=== PATIENT | female | born 1980 | race Two or more races ===

== ENCOUNTER 2021-04-05 09:14 | Emergency (ER) | payer BC, SELFPAY ==
--- NOTE | ~2021-04-05 | US_ITS ---
EXAMINATION: US VENOUS ULTRASOUND WITH DOPPLER LOWER EXTREMITY, RIGHT CLINICAL INFORMATION: Pain, swelling and erythema right leg. COMPARISON: None TECHNIQUE: Ultrasound of the deep veins is performed from the hip to the calf with compression sonography and color and pulse Doppler assessment. Spectral analysis with color-flow imaging is performed. FINDINGS: There is normal venous compression and respiratory variation and augmented flow. The visualized common femoral vein, superficial femoral vein, profunda femoral vein, popliteal vein, and the trifurcation region shows no evidence of deep venous thrombosis. There is no significant popliteal fossa cyst. Incidental finding of a small lymph node below the right groin measuring 1.99 x 4.26 x 1.16 cm. If the patient's symptoms persist, followup ultrasound in 5 to 7 days might be of value to exclude proximal propagation from a non-visualized calf vein. US/US venous duplex LE RT IMPRESSION: No DVT demonstrated in the right lower extremity.
[2021-04-05 09:23] VITALS: BP 152/78; PULSE 109; RESP 24; TEMP 36.8; O2SAT 96; BMI 63.6
--- NOTE | 2021-04-05 10:29 | ED.GENADULT ---
HPI - General Adult General Chief complaint: Extremity Problem Stated complaint: rt leg pain, swelling, ?cellulitis, hives Time Seen by Provider: 04/05/21 09:36 Source: patient Mode of arrival: ambulatory Limitations: no limitations History of Present Illness HPI narrative: 40-year-old female who presents emergency department for evaluation of cellulitis of the right lower extremity. The patient lives in [place] and return to this area 5 days prior to help her mother with her father's arrangements. The states that on 03/23/2021 she noticed redness of her right lower extremity and went to an urgent care clinic in [place]. She she was diagnosed her with cellulitis of her right lower extremity and treated with and injection of antibiotics then referred her to an emergency department. She states that at the emergency department , she had blood work and an ultrasound of her right lower extremity. She was then started on cephalexin 500 mg 4 times a day for 2 weeks, Bactrim 1 pill twice a day for 2 weeks and clindamycin 450 mg 3 times a day for 2 weeks. She states that the redness and the pain got significantly better however it did not resolve completely. She also states that over the last 3-4 days she has developed a pruritic rash over her entire body which she is treated with Benadryl. Currently, she states that she is having [id number] pain in her right foot and right lower extremity to just below the knee. She states that these areas are swollen compared to her left lower extremity. She states that the redness has improved significantly but has not gone away completely. She denied fever, chills, nausea, vomiting, weakness, fatigue. Related Data Previous Rx's Medication Instructions Recorded cefuroxime axetil 500 mg tablet 500 mg PO Q12H 10 Days #20 tab 04/05/21 doxycycline hyclate 100 mg tablet 100 mg PO Q12H 10 Days #20 tab 04/05/21 Allergies Allergy/AdvReac Type Severity Reaction Status Date / Time No Known Allergies Allergy Verified 04/05/21 10:30 Review of Systems Review of Systems: Yes all other systems are reviewed and are negative [facility] Past Medical History [facility] Narrative: Past medical history: Prediabetes, asthma. Past Surgical history: Tonsillectomy at age 23, uterine fibroid like tumor removed. Social history: Patient denies tobacco use. She states she drinks occasionally on the weekends. She denies drug use. She lives in [place] but is return to this area for her father's which is on 04/09/2022. Social History Social History Advance Directives: No Advance Directives Information Provided: No Patient : No Physical Exam Vital Signs: Vital Signs: Last Vital Signs Temp 98.3 F 04/05/21 09:23 Pulse 109 H 04/05/21 09:23 Resp 24 H 04/05/21 09:23 BP 152/78 H 04/05/21 09:23 Pulse Ox 96 04/05/21 09:23 Body Mass Index 63.6 Const: Other: Very pleasant cooperative female patient, does not appear to be in distress, answers all questions appropriately HENMT: Head: Yes normal to inspection, Yes normocephalic and Yes atraumatic Ears: external ears normal General nose exam: Normal external nose present Face and sinus: Yes normal facial exam Mouth: Normal oral and palatal mucosa present Throat: Yes posterior oropharynx normal Eyes: General: appearance normal, both eyes and all related structures Pupils: Equal, round and reactive pupils present Neck: Neck: Yes normal visual inspection, Yes no lymphadenopathy, Yes trachea midline and Yes supple Chest: Chest palpation & inspection: normal inspection of the chest and normal palpation of entire chest wall Resp: Effort & Inspection: normal respiratory effort and able to speak in complete sentences Auscultation: clear to auscultation bilaterally Cardio: Rate: regular rate Rhythm: regular rhythm Heart sounds: S1 normal heart sound present, S2 normal heart sound present and no murmurs GI: Inspection: Yes normal to inspection Palpation (GI): Soft to palpation, nontender and no guarding Auscultation: normal bowel sounds : General: Yes no CVA tenderness Back/Spine/Pelvis: Back: no CVA tenderness Skin: Other: Erythema to the right lower extremity with increased warmth, see extremity section Neuro: Cranial nerves: Yes CN's II-XII intact bilaterally and Yes Equal, round and reactive pupils present Cognition (Neuro): normal cognition Motor exam (neuro): 5/5 motor strength present throughout Extrem: Other: Patient provided a photo of her cellulitis prior to ED treatment on 03/23/2021(photo with her hospital ID bracelet)and the 2nd photo is from today. The patient does have erythema to her foot and pretibial area of the right lower extremity which is warm to the touch and does primitivo. The patient also has in nonblanching erythema to her arms, back, chest and legs. General: Yes normal to inspection Psych: Appearance: grossly normal Speech and movement: Normal speech and movement present Affect: normal affect Attitude: cooperative Thought process: Normal thought process present Thought content: Normal thought content present Course Course Course Narrative: 40-year-old female who presents emergency department for evaluation of cellulitis of her right lower extremity. Patient was initially diagnosed with cellulitis on 03/23/2021 and completed a 14 day course of Keflex, Bactrim and clindamycin with significant improvement of her redness and swelling. Patient states however she has continued to have redness over her right foot and right [place] area which has not resolved. Also over the past 4-5 days she developed a pruritic rash which is consistent with an allergic reaction. Patient's chills examination is consistent with a cellulitis of her right lower extremity however this is significantly improved compared to pictures that she showed me from prior to starting treatment. I did order laboratory evaluation on the patient. 1223: Laboratory evaluation revealed a normal CBC, patient does have a slight elevation in her lactate of 2.2. Patient's duplex ultrasound of her right lower extremity revealed no DVT. The patient will be treated with doxycycline 100 mg twice a day for 10 days and Ceftin 500 mg twice a day for 10 days. She was advised to elevate her leg and use a heating pad on low. I also discussed a allergic reaction/drug rash with the patient, I suspect that it secondary to the Bactrim and I did discuss this with her. Patient was given verbal and printed instructions and discharged home. Medical Decision Making Lab Data Result diagrams: 04/05/21 10:54 04/05/21 10:54 Labs: Lab Results 04/05/21 04/05/21 04/05/21 Range/Units 10:54 10:54 10:54 WBC 5.8 (4.8-10.8) X10*3/uL RBC 4.15 L (4.20-5.50) X10*6/uL Hgb 11.4 L (12.0-16.0) g/dl Hct 36.2 L (37.0-47.0) % MCV 87.2 (80.0-98.0) fL MCH 27.5 (27.0-33.0) pg MCHC 31.5 (31.0-35.0) g/dl RDW 14.6 (11.0-16.0) % Plt Count 310 (160-400) X10*3/uL MPV 9.8 (9.4-12.3) fL Immature Gran % (Auto) 0.3 (0.0-0.4) % Neut % (Auto) 62.9 (45-73) % Lymph % (Auto) 23.8 (20-40) % Howell % (Auto) 8.2 (2-11) % Eos % (Auto) 4.3 H (0-4) % Baso % (Auto) 0.5 (0-2) % Lymph # (Auto) 1.4 (1.2-4.9) X10*3/uL Howell # (Auto) 0.5 (0.1-1.2) X10*3/uL Eos # (Auto) 0.3 (0.0-0.4) X10*3/uL Baso # (Auto) 0.0 (0.0-0.2) X10*3/uL Abs Immat Gran (auto) 0.02 (0.00-0.03) X10*3/uL Absolute Neuts (auto) 3.7 (2.0-8.3) x10*3/uL Absolute Nucleated RBC 0.000 (0.0-0.012) X10*3/uL Nucleated RBC % (auto) 0.0 (0.0-0.2) /100WBC Sodium 138 (135-145) mmol/L Potassium 3.9 (3.3-5.1) mmol/L Chloride 105 (96-108) mmol/L Carbon Dioxide 26 (22-29) mmol/L Anion Gap 11 L (12-20) BUN 18 H (9-16) mg/dL Creatinine 0.72 (0.5-1.4) mg/dL Estim Creat Clear Calc 149.7 Estimated GFR > 60 Random Glucose 148 H (60-115) mg/dL Lactic Acid 2.2 H* (0.5-2.0) mmol/L Calcium 9.1 (8.4-10.2) mg/dL Total Bilirubin 0.3 (0.0-1.0) mg/dL AST 21 (5-31) U/L ALT 29 (0-31) U/L Alkaline Phosphatase 87 (39-117) U/L Total Protein 6.7 (6.5-8.0) g/dL Albumin 3.8 (3.5-5.0) g/dL Discharge Plan Discharge Clinical Impression: Cellulitis Patient Disposition: Home, Self-Care Instructions: Cellulitis (ED) Additional Instructions: The rash on your leg is consistent with a skin infection (cellulitis). The rash on the rest of your body is consistent with an allergic reaction, I suspect that this is secondary to sulfa drug Bactrim. However it may have also been caused by the clindamycin or cephalexin. If you continue to have the rash and it is itchy then take Benadryl 25 mg 4 to 6 times a day. This medication will make you sleepy. I am treating your skin infection with 2 antibiotics. Doxycycline 100 mg, 1 pill twice a day for 10 days. Ceftin 500 mg, 1 pill twice a day for 10 days. Try to keep your leg elevated this will help blood flow out of your leg and help the healing process. Use a heating pad on low for 15-20 minutes 4 to 6 times a day, this will increase the blood flow to your leg and help the healing process. Take ibuprofen 200 mg pills, 3 pills every 6 hours as needed for pain. Take Tylenol (acetaminophen) 500 mg pills, 2 pills every 4 to 6 hours as needed for pain. Follow-up with your doctor in 2 days. Please return to the emergency department if your symptoms get worse or if you develop any symptoms that are concerning to you. Prescriptions: New cefuroxime axetil 500 mg tablet 500 mg PO Q12H 10 Days Qty: 20 RF: 0 doxycycline hyclate 100 mg tablet 100 mg PO Q12H 10 Days Qty: 20 RF: 0
[2021-04-05 11:05] LABS: MANUAL DIFF FLAG NO
[2021-04-05 11:18] LABS: Basophils Percent Auto 0.5 % (0-2); Eosinophils Absolute Auto 0.3 X10*3/uL (0.0-0.4); Eosinophils Percent Auto 4.3 % (0-4); Hematocrit 36.2 % (37.0-47.0); Hemoglobin 11.4 g/dl (12.0-16.0); Imm Gran Abs Auto 0.02 X10*3/uL (0.00-0.03); Imm Gran Pct Auto 0.3 % (0.0-0.4); Lymphocytes Absolute Auto 1.4 X10*3/uL (1.2-4.9); Lymphocytes Percent Auto 23.8 % (20-40); Mean Corpuscular HGB Conc 31.5 g/dl (31.0-35.0); Mean Corpuscular Hemoglobin 27.5 pg (27.0-33.0); Mean Corpuscular Volume 87.2 fL (80.0-98.0); Mean Platelet Volume 9.8 fL (9.4-12.3); Monocytes Absolute Auto 0.5 X10*3/uL (0.1-1.2); Monocytes Percent Auto 8.2 % (2-11); Neutrophils Absolute Auto 3.7 x10*3/uL (2.0-8.3); Neutrophils Percent Auto 62.9 % (45-73); Platelet Count 310 X10*3/uL (160-400); Red Blood Count 4.15 X10*6/uL (4.20-5.50); Red Cell Distribution Width 14.6 % (11.0-16.0); White Blood Count 5.8 X10*3/uL (4.8-10.8)
[2021-04-05 11:31] LABS: Lactic Acid 2.2 mmol/L (0.5-2.0)
[2021-04-05 11:32] LABS: Alanine Aminotransferase 29 U/L (0-31); Albumin Level 3.8 g/dL (3.5-5.0); Alkaline Phosphatase 87 U/L (39-117); Anion Gap 11 (12-20); Aspartate Amino Transferase 21 U/L (5-31); Bilirubin Total 0.3 mg/dL (0.0-1.0); Blood Urea Nitrogen 18 mg/dL (9-16); Calcium 9.1 mg/dL (8.4-10.2); Carbon Dioxide 26 mmol/L (22-29); Chloride 105 mmol/L (96-108); Creatinine Clr Calc Pharmacy 149.7; Estimated Glomerular Filt Rate > 60; Glucose Random 148 mg/dL (60-115); Potassium 3.9 mmol/L (3.3-5.1); Sodium 138 mmol/L (135-145); Total Protein 6.7 g/dL (6.5-8.0)
[2021-04-05 13:03] LABS: Reflex Lactate? Lactic Acid Added
== END 2021-04-05 12:50 | disposition home or self-care (01) ==
PROVIDERS: Emergency Provider Emergency Medicine Emergency Medical Services
DX: L03.115 Cellulitis of right lower limb (principal); M79.604 Pain in right leg; R21 Rash and other nonspecific skin eruption
CPT/HCPCS: 36415; 80053; 83605; 85025; 87040; 93971; 99283; 99284